=== PATIENT | female | born 1965 | race Caucasian/White ===

== ENCOUNTER 2017-01-28 | Emergency (ER) | payer OTHER ==
[~2017-01-28] MED LIST: ALLERCLEAR10 MG PO
== END 2017-01-28 23:30 | disposition left against medical advice (07) ==
DX: Z53.21 Procedure and treatment not carried out due to patient leaving prior to being seen by health care provider (principal)

== ENCOUNTER 2017-02-10 18:49 | Emergency (ER) | payer OTHER | END 2017-02-10 21:35 | disposition home or self-care (01) | LOC: ER1 18:49 | DX: I87.2 Venous insufficiency (chronic) (peripheral) (principal); G89.29 Other chronic pain; F17.200 Nicotine dependence, unspecified, uncomplicated; Z88.5 Allergy status to narcotic agent; Z79.891 Long term (current) use of opiate analgesic | CPT/HCPCS: 93005; 99283 ==

== ENCOUNTER → 2021-03-18 | Outpatient (CLI) | payer OTHER ==
[~2021-03-18] MED LIST changes: +ALBUTEROL; +ALLOPURINOL300 MG PO; +AMLODIPINE BESYL5 MG PO; +ANORO ELLIPTA1 EACH INH; +BUPRENORPHIN-N1 EACH SL; +CITALOPRAM HBR40 MG PO; +CLOPIDOGREL75 MG PO; +COLCHICINE0.6 MG PO; +DULOXETINE HCL30 MG PO; +FLONASE 0.05% N16 GM; +FOLIC ACID 1 MG1 MG PO; +HYDROCHLOROTHIA25 MG PO; +HYDROXYCHLOROQ200 MG PO; +LISINOPRIL40 MG PO; +MELOXICAM7.5 MG PO; +NEURONTIN800 MG PO; +PERCOCET 7.5-31 EACH PO; +PROTONIX 40 MG40 M1 PO; +ROBAXIN 750 MG750 MG PO; +SINGULAIR10 MG PO; +STIOLTO RESPIMAT4 GM INH
== END ==
LOC: KOH-I 16:22
DX: M79.601 Pain in right arm (principal); M54.2 Cervicalgia; M25.811 Other specified joint disorders, right shoulder; M19.021 Primary osteoarthritis, right elbow; M47.812 Spondylosis without myelopathy or radiculopathy, cervical region
CPT/HCPCS: 72040; 73010; 73030; 73080

== ENCOUNTER → 2021-04-03 | Outpatient (CLI) | payer OTHER ==
[2021-04-03 14:58] LABS: HEMOGLOBIN 13.4 gm/dl (12.3-15.3); RED BLOOD COUNT 4.57 M/UL (4.00-5.10); WHITE BLOOD COUNT 5.5 K/UL (4.5-11.0)
== END ==
LOC: LAB 13:55
PROVIDERS: Orthopaedic Surgery
DX: Z01.812 Encounter for preprocedural laboratory examination (principal); M25.562 Pain in left knee; M17.12 Unilateral primary osteoarthritis, left knee
CPT/HCPCS: 36415; 85027; 85652; 86140

== ENCOUNTER → 2021-04-14 | Outpatient (CLI) | payer OTHER | LOC: KOH-I 04-07 09:45 | DX: Z01.818 Encounter for other preprocedural examination (principal); M17.12 Unilateral primary osteoarthritis, left knee; M25.862 Other specified joint disorders, left knee; S83.512A Sprain of anterior cruciate ligament of left knee, initial encounter | CPT/HCPCS: 73721 ==

== ENCOUNTER → 2021-06-04 | Outpatient (CLI) | payer OTHER ==
[~2021-06-04] MED LIST changes: +ELIQUIS 2.5 MG2.5 MG PO; +FERROUS SULFAT325 M2 PO
[2021-06-04 13:05] LABS: HEMOGLOBIN 15.3 gm/dl (12.3-15.3); RED BLOOD COUNT 5.02 M/UL (4.00-5.10); WHITE BLOOD COUNT 7.7 K/UL (4.5-11.0)
[2021-06-04 13:35] LABS: BUN/CREATININE RATIO 23 (0-10)
== END ==
LOC: OPSV2 12:00 → EDSTATUS 12:00 → OPSV2 12:23
PROVIDERS: Orthopaedic Surgery
DX: Z01.818 Encounter for other preprocedural examination (principal); M17.12 Unilateral primary osteoarthritis, left knee
CPT/HCPCS: 36415; 80048; 81001; 85025; 87081; 93005

== ENCOUNTER → 2021-06-16 | Outpatient (CLI) | payer OTHER ==
[2021-06-16 15:43] LABS: BUN/CREATININE RATIO 19 (0-10)
== END ==
LOC: LAB 13:40
PROVIDERS: Orthopaedic Surgery
DX: Z01.812 Encounter for preprocedural laboratory examination (principal)
CPT/HCPCS: 36415; 80048; 86850; 86900; 86901; 86920; P9016

== ENCOUNTER 2021-06-17 08:43 | Day surgery (SDC) | payer OTHER ==
[~2021-06-17] VITALS: Ht 154.9 cm; Wt 61.2 kg
[~2021-06-17 08:43] MED LIST changes: -COLCHICINE0.6 MG PO; -ELIQUIS 2.5 MG2.5 MG PO; -FERROUS SULFAT325 M2 PO; -FLONASE 0.05% N16 GM; -NEURONTIN800 MG PO; -PERCOCET 7.5-31 EACH PO; -STIOLTO RESPIMAT4 GM INH
[2021-06-17] MEDS ORDERED: NEURONTIN800 MG PO (09:31)
[2021-06-17] MEDS ORDERED: COLCHICINE0.6 MG PO (12:54)
[2021-06-17] MEDS ORDERED: FLONASE 0.05% N16 GM (13:04)
[2021-06-17] MEDS ORDERED: STIOLTO RESPIMAT4 GM INH (13:06)
[2021-06-17] MEDS ORDERED: PERCOCET 7.5-31 EACH PO (17:08)
[2021-06-18 03:15] LABS: HEMOGLOBIN 8.9 gm/dl (12.3-15.3); WHITE BLOOD COUNT 8.3 K/UL (4.5-11.0)
[2021-06-18 03:32] LABS: BUN/CREATININE RATIO 21 (0-10)
--- NOTE | 2021-06-18 03:43 | NUR ---
THROUGHOUT THE 7 P SHIFT, AND ON MULTIPLE OCCASIONS PATIENTS WOULD WAKE HER UP DURING REST AND INSIST THAT NURSING STAFF ADMINISTER HER PAIN MEDICATION. HE WOULD FREQUENTLY COME TO THE DESK REQUESTING THE MEDICATION FOR THE PATIENT AND ONCE ENTERING THE ROOM THE PATIENT WOULD BE ASLEEP, APPEARING VERY DROWZY. AFTER STANDING IN THE PATIENTS ROOM FOR LONG PERIODS OF TIME THE PATIENT WOULD NOT EVEN BE ABLE TO ACKNOWLEDGE THAT I WAS IN THE ROOM BECAUSE SHE WOULD BE ASLEEP ALTHOUGH HER REQUESTED SHE BE GIVEN PAIN MEDICAITON. AROUND 2049 I HAD ANA CHEEK TO GO INTO THE PATIENTS ROOM TO WITNESS BEHAVIOR OF PATIENT AND HER , I THOUGH THE PATIENT WAS TOO DROWXY TO ADMINISTER MEDICAITON, SHE AGREED. ADDITIONALLY, THEY STATED NO NEEDS AND NO COMPLAINTS AT THE TIME OF HER VISIT. WHEN ENTERING ROOM WHEN PATIENT WAS AWAKE WITH HER STANDING OVER HER SHE WOULD OFTEN TIMES NOT BE ABLE TO ACKNOWLEDGE NEEDS SHE WOULD OFTEN MUMBLE HER WORDS DUE TO BEING EXCESSIVELY DROWZY. 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 SEVERAL ROUNDS DURING THE SHIFT THE PATIENTS WOULD BE SITTING IN THE CHAIR IN THE ROOM WITH HIS HEAD ALMOST TO THE FLOOR APPEARING VERY DROWZY HIMSELF. HE STATED DURING THE SHIFT THAT IF SHE DIDN'T GET PAIN MEDICAITON THAT HE WOULD CALL DR VILCHIS HIMSELF HE AND DR VILCHIS WERE FRIENDS AND HE HAD HIS PERSONAL NUMBER. I ASSURED THE PATIENT AND HER THAT IF SHE APPEARED TO BE IN PAIN THAT I WOULD ASSESS HER NEEDS AND ADMINISTER PAIN MEDICAITON NEEDED, AROUND 299 THE PATIENTS CAME TO THE DOOR REQUESTING PAIN MEDICAITON FOR THE PATIENT. I WALKED IN THE PATIENTS ROOM WITH ANOTHER STAFF MEMBER AND THE PATIENT WAS ASLEEP IN NO DISTRESS. THE PATIENTS CAME OUT OF THE RESTROOM I EXPLIANED TO HIM THAT SHE WAS TOO DROWZY TO GIVE HER PAIN MEDICATION AT THIS TIME. THE PATIENTS BECAME UPSET AND STATED THAT HE WOULD CALL THE [facility]ULB BRANDER OF THE HOSPITAL IF I DID NOT GIVE HER PAIN MEDICAITON. PORTRAYING AGRESSIVE BEHAVIOR HE LEFT THE ROOM, THE PATIENT BECAME CALMER AFTER HER LEFT. HARSHA BECERRA NOTIFIED OF INCIDENT WELL ANA JONATHAN.
--- NOTE | 2021-06-18 04:36 | NUR ---
0300- PATIENT CALL LIGHT UNABLE TO FUNCTION AT THIS TIME, PATIENT PROVIDED STROUD FOR USE, AND VERBALIZED UNDERSTANDING OF USE. PATIENT ACROSS FROM NURSES STATION, BED ALARM ACTIVATED. WORK ORDER ENTERED FOR NON-USE OF CALL LIGHT.
[2021-06-18 16:29] LABS: HEMOGLOBIN 7.4 gm/dl (12.3-15.3); WHITE BLOOD COUNT 6.8 K/UL (4.5-11.0)
[2021-06-18 16:34] LABS: RED BLOOD COUNT 2.45 M/UL (4.00-5.10)
[2021-06-19 04:01] LABS: HEMOGLOBIN 7.5 gm/dl (12.3-15.3); RED BLOOD COUNT 2.59 M/UL (4.00-5.10); WHITE BLOOD COUNT 8.7 K/UL (4.5-11.0)
[2021-06-19 04:05] LABS: BUN/CREATININE RATIO 15 (0-10)
[2021-06-19 08:54] LABS: HEMOGLOBIN 7.7 gm/dl (12.3-15.3)
[2021-06-19 19:40] LABS: BUN/CREATININE RATIO 12 (0-10)
[2021-06-20 06:56] LABS: RED BLOOD COUNT 2.07 M/UL (4.00-5.10); WHITE BLOOD COUNT 5.8 K/UL (4.5-11.0)
[2021-06-20 06:57] LABS: HEMOGLOBIN 6.2 gm/dl (12.3-15.3)
[2021-06-20 07:15] LABS: BUN/CREATININE RATIO 15 (0-10)
[2021-06-21 06:42] LABS: WHITE BLOOD COUNT 6.1 K/UL (4.5-11.0)
[2021-06-21 06:44] LABS: HEMOGLOBIN 9.3 gm/dl (12.3-15.3); RED BLOOD COUNT 3.12 M/UL (4.00-5.10)
[2021-06-21 06:51] LABS: BUN/CREATININE RATIO 15 (0-10)
[2021-06-22] MEDS ORDERED: ELIQUIS 2.5 MG2.5 MG PO (10:58)
[2021-06-22] MEDS ORDERED: FERROUS SULFAT325 M2 PO (10:58)
[2021-06-22 11:04] LABS: HEMOGLOBIN 11.1 gm/dl (12.3-15.3); WHITE BLOOD COUNT 7.1 K/UL (4.5-11.0)
[2021-06-22 11:05] LABS: RED BLOOD COUNT 3.72 M/UL (4.00-5.10)
[2021-06-22 11:55] LABS: BUN/CREATININE RATIO 14 (0-10)
--- NOTE | 2021-06-22 18:51 | NUR ---
1645 - IN ROOM TO DC PATIENT. IV REMOVED. STARTED DC INSTRUCTIONS WITH PT AND SHE WANTED TO VERIFY WITH PHARMACY THAT HER MEDS WERE THERE. LEFT ROOM TO UNTIL PT IS READY FOR DC TEACHING 1700 - PT STATES HER MEDICATIONS ARE NOT AT THE PHARMACY. LINDA WITH CASE MANAGEMENT HELPING WITH TRACKING DOWN [facility] PRESCRIPTION. DR VILCHIS CURRENTLY IN SURGERY 1745 - [facility] STATES THEY DO NOT HAVE PRESCRIPTIONS FOR PT. MEDS CALLED IN AND PRESCRIPTION OBTAINED FROM DR VILCHIS BY LINDA IN CASE MANAGEMENT. PT ARGUEING WITH STAFF. STATES SHE HAS BEEN TREATED POORLY FOR THE PAST HOUR AND WILL CALL ADMINISTRATION IN AM. STATES HER SISTER IS IN PARKING LOT AND NOT FEELING WELL AND HAS HAD TO WAIT ON US TO GET OUR "STUFF TOGETHER". DC PAPERS SIGNED AND PT TRANSPORTED VIA TO PRIVATE CAR.
== END 2021-06-22 17:53 | disposition home or self-care (01) ==
LOC: OR 08:43 → M/S 08:43 → OR 10:45 → M/S 14:55 → OR 06-21 09:45 → M/S 06-21 09:45 → OR 06-22 17:53
PROVIDERS: Internal Medicine; Nurse Practitioner Family; Orthopaedic Surgery
DX: M17.12 Unilateral primary osteoarthritis, left knee (principal); M21.162 Varus deformity, not elsewhere classified, left knee; G89.29 Other chronic pain; D62 Acute posthemorrhagic anemia; I11.9 Hypertensive heart disease without heart failure; J44.9 Chronic obstructive pulmonary disease, unspecified; I25.10 Atherosclerotic heart disease of native coronary artery without angina pectoris; M34.9 Systemic sclerosis, unspecified; F11.20 Opioid dependence, uncomplicated; F17.200 Nicotine dependence, unspecified, uncomplicated; Z79.899 Other long term (current) drug therapy; Z96.652 Presence of left artificial knee joint; Z88.6 Allergy status to analgesic agent; Z85.3 Personal history of malignant neoplasm of breast; Z90.49 Acquired absence of other specified parts of digestive tract
CPT/HCPCS: 36415; 36430; 73560; 80048; 80053; 82728; 83540; 83550; 84439; 84443; 85007; 85014; 85018; 85025; 85027; 86850; 86900; 86901; 86920; 93971; 94640; 94664; 94760; 97110-GP-CQ; 97116; 97116-GP-CQ; 97162; 97166; 97530; 97530-GP-CQ; 97535; C1776; J0690; J1100; J1170; J1200; J1644; J2250; J2405; J2550; J2704; J2795; J3010; J3370; J3475; J7030; J7120; P9016

== ENCOUNTER → 2021-07-27 | Outpatient (CLI) | payer OTHER ==
[~2021-07-27] MED LIST changes: +COLCHICINE0.6 MG PO; +ELIQUIS 2.5 MG2.5 MG PO; +FERROUS SULFAT325 M2 PO; +FLONASE 0.05% N16 GM; +NEURONTIN800 MG PO; +PERCOCET 7.5-31 EACH PO; +STIOLTO RESPIMAT4 GM INH
== END ==
LOC: KOH-I 11:17
DX: M25.562 Pain in left knee (principal); M79.672 Pain in left foot; M25.511 Pain in right shoulder; M19.072 Primary osteoarthritis, left ankle and foot; M25.462 Effusion, left knee; Z96.652 Presence of left artificial knee joint
CPT/HCPCS: 73030; 73562; 73630